=== PATIENT | female | born 1985 | race Two or more races ===

== ENCOUNTER 2021-11-09 20:53 | Emergency (ER) | payer OTHER ==
[~2021-11-09] VITALS: Ht 162.6 cm; Wt 51.3 kg
[2021-11-09] MEDS ORDERED: PRENA1 CHEW TA1.4 MG PO (21:02)
== END 2021-11-09 23:26 | disposition home or self-care (01) ==
LOC: ER 20:53
DX: O20.0 Threatened abortion (principal)

== ENCOUNTER 2022-03-12 12:40 | Outpatient (CLI) | payer OTHER ==
[~2022-03-12] VITALS: Ht 162.6 cm; Wt 59.0 kg
[~2022-03-12 12:40] MED LIST: PRENA1 CHEW TA1.4 MG PO
[2022-03-12] MEDS ORDERED: PRENATAL TABLE1 EAC1 PO (13:33)
[2022-03-12] MEDS ORDERED: PHENERGAN25 MG PO (13:33)
== END 2022-03-13 18:52 | disposition home or self-care (01) ==
LOC: OBS/DEL 12:40
PROVIDERS: ATTEND Specialist
DX: O26.892 Other specified pregnancy related conditions, second trimester (principal); Z3A.24 24 weeks gestation of pregnancy; R31.9 Hematuria, unspecified; Z88.6 Allergy status to analgesic agent; Z91.018 Allergy to other foods

== ENCOUNTER 2022-03-21 19:11 | Outpatient (CLI) | payer OTHER ==
[~2022-03-21 19:11] MED LIST changes: +PHENERGAN25 MG PO; +PRENATAL TABLE1 EAC1 PO
== END 2022-03-22 10:09 | disposition home or self-care (01) ==
LOC: OBS/DEL 19:11
PROVIDERS: ATTEND Specialist
DX: O26.892 Other specified pregnancy related conditions, second trimester (principal); Z3A.25 25 weeks gestation of pregnancy; R31.9 Hematuria, unspecified; Z88.6 Allergy status to analgesic agent; Z91.018 Allergy to other foods

== ENCOUNTER 2022-06-19 12:30 | Inpatient (IN) | payer OTHER ==
[~2022-06-19] VITALS: Ht 162.6 cm; Wt 3.2 kg
== END 2022-06-24 15:12 | disposition home or self-care (01) | DRG 788 ==
LOC: OB/GYN 06-21 07:26 → LDR 06-21 07:26 → O/R 06-21 13:32 → OB/GYN 06-21 15:18 → LDR 06-25 12:30
PROVIDERS: ADMIT Specialist; ATTEND Specialist
PROC: 4A1HXCZ Monitoring of Products of Conception, Cardiac Rate, External Approach (ICD-10-PCS; 2022-06-21)
PROC: 10D00Z1 Extraction of Products of Conception, Low, Open Approach (ICD-10-PCS; principal; 2022-06-21 12:45)
DX: O34.211 Maternal care for low transverse scar from previous cesarean delivery (principal); Z3A.38 38 weeks gestation of pregnancy; Z37.0 Single live birth; Z20.822 Contact with and (suspected) exposure to COVID-19